=== PATIENT | male | born 1990 | race Caucasian/White ===

== ENCOUNTER 2023-07-19 16:21 | Emergency (ER) | payer OTHER, BC ==
[~2023-07-19] VITALS: Ht 190.5 cm; Wt 154.2 kg
[2023-07-19 16:30] VITALS: BP_SYST 103; PULSE 125; RESP 18; TEMP 97.8; O2SAT 97
[2023-07-19] MEDS ORDERED: MORPHINE 4 MG INJ. 4 MG/ML VIAL IVP ONE (16:45)
[2023-07-19] MEDS ORDERED: ONDANSETRON HCL 4 MG/2 ML VIAL IVP ONE (16:45)
[2023-07-19 17:07] LABS: BASOPHILS % (AUTO) 0.1 % (0.0-2.0); HEMATOCRIT 37.9 % (36-54); HEMOGLOBIN 12.9 g/dL (14.0-18.0); LYMPHOCYTES # (AUTO) 0.9 K/uL (1.0-5.5); MEAN CORPUSCULAR HEMOGLOBIN 32 pg (27-31); MEAN CORPUSCULAR HGB CONC 34 % (32-36); MEAN CORPUSCULAR VOLUME 93 fL (79.0-98.0); MONOCYTES # (AUTO) 0.9 K/uL (0.0-1.0); MONOCYTES % (AUTO) 6.1 % (1.7-9.3); NEUTROPHILS # (AUTO) 13.6 K/uL (1.8-7.7); NEUTROPHILS % (AUTO) 87.8 % (40.0-70.0); PLATELET COUNT (AUTO) 295 K/uL (130-430); RED BLOOD CELL COUNT(AUTO) 4.08 MIL/uL (4.2-6.2); RED CELL DISTRIBUTION WIDTH 12.9 % (9.0-15.0); WHITE BLOOD COUNT (AUTO) 15.4 K/uL (4.8-10.8)
[2023-07-19 17:19] LABS: PROTHROMBIN TIME 10.5 SECS (9.5-12.5)
[2023-07-19 17:27] LABS: ALBUMIN 3.9 g/dL (3.4-4.8); BILIRUBIN,DIRECT 0.2 mg/dL (0.0-0.3); CALCIUM 8.6 mg/dL (8.4-11.0); CREATININE 1.41 mg/dL (0.55-1.30); POTASSIUM 4.1 mmol/L (3.5-5.1); TOTAL BILIRUBIN 0.8 mg/dL (0.0-1.0); TOTAL PROTEIN, SERUM 6.9 g/dL (6.4-8.3)
[2023-07-19 17:52] LABS: CKMB RELATIVE INDEX 0.3 (0.0-2.9)
[2023-07-19] MEDS ORDERED: TRAM50TA2 PO (18:35)
[2023-07-19] MEDS ORDERED: IBUP-1971 PO (18:35)
[2023-07-19] MEDS ORDERED: NACL 0.9% 2,000 ML IV ONE (18:45)
[2023-07-19 19:01] VITALS: BP_SYST 103; PULSE 125; RESP 18; TEMP 97.8; O2SAT 97
== END 2023-07-19 19:01 | disposition home or self-care (01) ==
LOC: SED 16:21
DX: S30.1XXA Contusion of abdominal wall, initial encounter (principal); V86.55XA Driver of 3- or 4- wheeled all-terrain vehicle (ATV) injured in nontraffic accident, initial encounter; Y93.89 Activity, other specified; Y92.89 Other specified places as the place of occurrence of the external cause; Y99.8 Other external cause status
CPT/HCPCS: 99285; 74177; 96374; 96361; 96375; 80076; 80048; 82150; 82550; 82553; 83690; 85025; 85610; 85730; 36415; 76376; J2405; J2270; J7030

== ENCOUNTER 2023-09-22 15:21 | Emergency (ER) | payer BC, OTHER ==
[~2023-09-22] VITALS: Ht 193 cm; Wt 148.8 kg
[2023-09-22 15:21] VITALS: BP_SYST 132; PULSE 106; RESP 17; TEMP 97.6; O2SAT 97
[~2023-09-22 15:21] MED LIST: IBUP-1971 PO; TRAM50TA2 PO
[2023-09-22 16:40] LABS: BASOPHILS % (AUTO) 0.1 % (0.0-2.0); EOSINOPHILS % (AUTO) 0.4 % (0.0-4.0); HEMATOCRIT 37.8 % (36-54); HEMOGLOBIN 13.1 g/dL (14.0-18.0); LYMPHOCYTES # (AUTO) 2.2 K/uL (1.0-5.5); LYMPHOCYTES % (AUTO) 24.9 % (20.5-51.5); MEAN CORPUSCULAR HEMOGLOBIN 32 pg (27-31); MEAN CORPUSCULAR HGB CONC 35 % (32-36); MEAN CORPUSCULAR VOLUME 91 fL (79.0-98.0); MONOCYTES # (AUTO) 0.7 K/uL (0.0-1.0); MONOCYTES % (AUTO) 8.3 % (1.7-9.3); NEUTROPHILS # (AUTO) 5.8 K/uL (1.8-7.7); NEUTROPHILS % (AUTO) 66.3 % (40.0-70.0); PLATELET COUNT (AUTO) 488 K/uL (130-430); RED BLOOD CELL COUNT(AUTO) 4.16 MIL/uL (4.2-6.2); RED CELL DISTRIBUTION WIDTH 14.5 % (9.0-15.0); WHITE BLOOD COUNT (AUTO) 8.7 K/uL (4.8-10.8)
[2023-09-22 16:52] LABS: INR 1.1 (0.80-1.20)
[2023-09-22 17:41] LABS: ANION GAP 10 (5-15); CALCIUM 8.3 mg/dL (8.4-11.0); CARBON DIOXIDE 27 mmol/L (23-29); CHLORIDE 102 mmol/L (98-107); CREATININE 0.74 mg/dL (0.55-1.30); GFR AFRICAN AMERICAN 159 mL/min (>90); GFR NON AFRICAN-AMERICAN 131 mL/min (>90); GLUCOSE 102 mg/dL (74-106); POTASSIUM 4.2 mmol/L (3.5-5.1); SODIUM SERUM 139 mmol/L (136-145); UREA NITROGEN, BLOOD 10 mg/dL (8-21)
[2023-09-22] MEDS ORDERED: CLIN-142 PO (18:19)
== END 2023-09-22 18:18 | disposition home or self-care (01) ==
LOC: SED 15:21
DX: L03.116 Cellulitis of left lower limb (principal); M25.552 Pain in left hip; M79.89 Other specified soft tissue disorders; Z79.899 Other long term (current) drug therapy
CPT/HCPCS: 36415; 73502; 80048; 83605; 85025; 85610; 85730; 93971; 99284